=== PATIENT | male | born 1985 | race American Indian/Alaskan Native ===

== ENCOUNTER 2017-02-03 23:50 | Observation (INO) | payer SELFPAY ==
[2017-02-03 23:50] VITALS: BMI 20.3
--- NOTE | 2017-02-03 23:57 | C.PDOC ---
History Of Present Illness Patient is brought to the ED via ambulance for intoxication and agitation. Patient was found hiding behind bushes. He was agitated and combative. Patient was restrained for his safety as well as others. Patient denies suicidal or homicidal ideation, chest pain, shortness of breath, nausea or vomiting at this time. Time Seen by Provider: 02/03/17 23:53 History Per: Patient History/Exam Limitations: intoxication Onset/Duration Of Symptoms: Other Current Symptoms Are (Timing): Still Present Suicide/Self Injury Attempted (Context): None Modifying Factor(s): Narcotics Severity: Moderate Pain Scale Rating Of: 5 Associated Symptoms: Anger, Agitation Involuntary Hold By: None Recent travel outside of the [place]: No Additional History Per: EMS Past Medical History Reviewed: Historical Data, Nursing Documentation, Vital Signs Vital Signs: Last Vital Signs Temp 97.6 F 02/04/17 00:10 Pulse 88 02/04/17 03:55 Resp 16 02/04/17 03:55 BP 101/55 L 02/04/17 03:55 Pulse Ox 100 02/04/17 03:55 Family History: States: No Known Family Hx - Social History Hx Alcohol Use: Yes Hx Substance Use: Yes (unknown) Review Of Systems Cardiovascular: Negative for: Chest Pain Respiratory: Negative for: Shortness of Breath Gastrointestinal: Negative for: Nausea, Vomiting Psych: Negative for: Suicidal ideation Physical Exam - Physical Exam Appears: Non-toxic, Other (intoxicated) Skin: Warm, Dry Head: Atraumatic, Normacephalic Neck: Supple Chest: Symmetrical Cardiovascular: Rhythm Regular (tachycardic) Respiratory: No Rales, No Rhonchi, No Wheezing Back: No CVA Tenderness Extremity: Bilateral: Atraumatic ED Course And Treatment - Laboratory Results Result Diagrams: 02/04/17 00:46 02/04/17 00:46 O2 Sat by Pulse Oximetry: 98 (room air) Pulse Ox Interpretation: Normal Progress Note: Plan: -Labs. -AtivanStefany Geodon Reassessment Condition: Improved ED OBSERVATION Discharge: Yes Date of observation admission: 02/03/17 Time of observation admission: 23:54 - Observation admission statement Patient is being placed in observation because:: intoxication , agitation - Goals of Observation Goals of observation are:: sobriety - Progress Note Progress Note: 02/03/17 23:58 vitals stable, agitated, combative, aggressive pt restrained and medicated. placed on 1:1 precautions Disposition Counseled Patient/Family Regarding: Studies Performed, Diagnosis - Disposition Disposition: HOME/ ROUTINE Disposition Time: 05:30 Condition: FAIR - Clinical Impression Clinical Impression: Drug abuse, Alcohol intoxication - Scribe Statement The provider has reviewed the documentation as recorded by the Scribe Jennie Jones Provider Attestation: All medical record entries made by the Scribe were at my direction and personally dictated by me. I have reviewed the chart and agree that the record accurately reflects my personal performance of the history, physical exam, medical decision making, and the department course for this patient. I have also personally directed, reviewed, and agree with the discharge instructions and disposition.
[2017-02-04] MEDS ORDERED: DiphenhydrAMINE 50 mg/ml Inj IVP STA (00:04)
[2017-02-04 00:17] VITALS: TEMP 97.6
[2017-02-04 00:53] LABS: BASO % 0.4 % (0.0-2.0); EOS # 0.1 K/uL (0.0-0.7); EOS % 1.7 % (0.0-4.0); LYMPH # 2.8 K/uL (1.0-4.3); LYMPH % 36.5 % (20.0-40.0); MEAN CELL VOLUME 91.9 fL (80.0-94.0); MEAN CORPUSCULAR HEMOGLOBIN 30.4 pg (27.0-31.0); MEAN PLATELET VOLUME 8.1 fL (7.2-11.7); MONO # 0.4 K/uL (0.0-0.8); MONO % 4.6 % (0.0-10.0); NRBC % 0.1 % (0.0-2.0); RED CELL DISTRIBUTION WIDTH 14.4 % (11.5-14.5); WHITE BLOOD COUNT 7.7 K/uL (4.8-10.8)
[2017-02-04 01:03] LABS: CHLORIDE 103 mmol/L (98-107); POTASSIUM 3.6 mmol/L (3.6-5.2); SODIUM 143 mmol/L (132-148)
[2017-02-04 01:05] LABS: GFR AFRICAN-AMERICAN > 60
[2017-02-04 01:06] LABS: ALB/GLOB RATIO 1.8 (1.0-2.1); ALKALINE PHOSPHATASE 51 U/L (38-126); ALT/SGPT 13 U/L (21-72); AST/SGOT 27 U/L (17-59); BILIRUBIN,TOTAL 0.2 mg/dL (0.2-1.3); BLOOD UREA NITROGEN 13 mg/dL (9-20); CALCIUM 8.6 mg/dl (8.6-10.4); CARBON DIOXIDE 25 mmol/L (22-30); GLUCOSE,RANDOM 91 mg/dL (75-110)
[2017-02-04 01:14] VITALS: RESP 16
[2017-02-04 01:25] LABS: ALCOHOL SERUM 306 mg/dl (0-10)
[2017-02-04 03:57] VITALS: BP 101/55; PULSE 88
[2017-02-04 21:05] VITALS: O2SAT 98
== END 2017-02-04 06:10 | disposition home or self-care (01) ==
LOC: C.ER 23:50 → C.9OBSV 02-04 00:05
PROVIDERS: ADMIT Emergency Medicine; ATTEND Emergency Medicine
DX: F10.129 Alcohol abuse with intoxication, unspecified (principal); Z78.1 Physical restraint status; F10.120 Alcohol abuse with intoxication, uncomplicated; Y90.8 Blood alcohol level of 240 mg/100 ml or more
CPT/HCPCS: 80053; 82948; 85025; 99284; G0378; G0480